=== PATIENT | female | born 1955 | race Caucasian/White ===

== ENCOUNTER 2022-07-12 12:04 | Emergency (ER) | payer MEDICARE, BC ==
[2022-07-12] MEDS ORDERED: Acetaminophen/HYDROcodone 325-5 MG Tab PO ONE (12:05)
[2022-07-12] MEDS ORDERED: Ondansetron 4 MG Tab.DIS PO ONE (12:05)
[2022-07-12] MEDS ORDERED: Ondansetron 4 MG/2 ML SDV IVPUSH ONE (12:26)
[2022-07-12] MEDS ORDERED: Morphine 4 MG/ML VIAL IVPUSH ONE (12:26)
[2022-07-12] MEDS ORDERED: Acetaminophen/HYDROcodone 325-5 MG Tab PO STA (12:43)
[2022-07-12] MEDS ORDERED: Sodium Chloride 0.9% 1,000 ML IV ONE (12:51)
[2022-07-12 12:57] LABS: ESTIMATED GFR 55 mL/min (>60)
[2022-07-12] MEDS ORDERED: Iopamidol 755 Mg/ML 100 ML Bottle IV ONE (14:51)
[2022-07-12] MEDS ORDERED: Amoxicillin/Clavulanate K 875-125 MG Tab PO ONE (16:20)
== END 2022-07-12 16:34 | disposition home or self-care (01) ==
LOC: FB.ED 12:04
DX: A09 Infectious gastroenteritis and colitis, unspecified (principal); E86.0 Dehydration; K64.4 Residual hemorrhoidal skin tags; K59.00 Constipation, unspecified; I10 Essential (primary) hypertension; E11.9 Type 2 diabetes mellitus without complications; Z88.1 Allergy status to other antibiotic agents; Z91.040 Latex allergy status; Z79.899 Other long term (current) drug therapy; Z90.49 Acquired absence of other specified parts of digestive tract
CPT/HCPCS: 74177; 80053; 81001; 82150; 82270; 83690; 85025; 85610; 85730; 96361; 96374; 99284; A9270; J2405; J7030; Q0162; Q9967